=== PATIENT | female | born 2000 | race Two or more races ===

== ENCOUNTER 2022-07-01 16:19 | Outpatient (CLI) | payer OTHER ==
[~2022-07-01] VITALS: Ht 157.5 cm; Wt 79.6 kg
[2022-07-01 17:20] VITALS: BP 116/55
[2022-07-01 17:24] LABS: BASO % 0.2 % (0.0-1.0); EOS # 0.1 10^3/uL (0.0-0.5); EOS % 0.5 % (0.0-3.0); LYMPH # 1.7 10^3/uL (1.5-5.0); LYMPH % 12.4 % (24.0-44.0); MEAN CORPUSCULAR HEMOGLOBIN 30.2 pg (27.0-33.0); MEAN CORPUSCULAR HGB CONC 33.3 g/dl (32.0-36.5); MEAN CORPUSCULAR VOLUME 90.5 fl (80.0-96.0); MONO # 0.8 10^3/uL (0.0-0.8); MONO % 5.6 % (2.0-8.0); NEUTROPHILS # 10.7 10^3/uL (1.5-8.5); NEUTROPHILS % 80.6 % (36.0-66.0); PLATELET COUNT, AUTOMATED 254 10^3/uL (150-450); RED BLOOD COUNT 3.98 10^6/uL (4.00-5.40); WHITE BLOOD COUNT 13.3 10^3/uL (4.0-10.0)
[2022-07-01] MEDS ORDERED: PREN1TAB18 PO (17:46)
[2022-07-01] MEDS ORDERED: PYRI25TA2 PO (17:51)
[2022-07-01] MEDS ORDERED: UNIS25TA5 PO (17:51)
[2022-07-01] MEDS ORDERED: CVS325CA PO (17:51)
[2022-07-01] MEDS ORDERED: TUMS500C PO (17:51)
[2022-07-01] MEDS ORDERED: HOME MED LIST COMPLETE! XX SCH (17:55)
[2022-07-01] MEDS ORDERED: BETAMETHASONE SOLUSPAN 6MG/ML 5ML VIAL (J0702 PER 3MG) IM SCH (18:00)
[2022-07-01 18:35] VITALS: BP 147/87
[2022-07-01 18:36] VITALS: BP 139/70
[2022-07-01 18:50] LABS: GC DNA AMPLIFICATION NEGATIVE (NEGATIVE)
== END 2022-07-01 18:33 | disposition home or self-care (01) ==
LOC: M LDO 16:19
PROVIDERS: ATTEND Advanced Practice Midwife
DX: O26.872 Cervical shortening, second trimester (principal); Z3A.24 24 weeks gestation of pregnancy
CPT/HCPCS: 59025; 76815; 76817; 85025; 87081; 87661; 87810; 87850; 96372; G0378; G0463; J0702

== ENCOUNTER → 2022-07-02 | Outpatient (CLI) | payer OTHER ==
[~2022-07-02] VITALS: Ht 157.5 cm; Wt 83.3 kg
[~2022-07-02] MED LIST: BETAMETHASONE SOLUSPAN 6MG/ML 5ML VIAL (J0702 PER 3MG) IM ONE; CVS325CA PO; PREN1TAB18 PO; PYRI25TA2 PO; TUMS500C PO; UNIS25TA5 PO
[2022-07-02 18:20] VITALS: BP 128/74
[2022-07-02 18:48] VITALS: BP 134/63
== END ==
LOC: M LDO 17:59
PROVIDERS: ATTEND Registered Nurse
DX: O26.872 Cervical shortening, second trimester (principal); Z3A.24 24 weeks gestation of pregnancy
CPT/HCPCS: 59025; 96372; G0463; J0702

== ENCOUNTER 2022-07-07 09:14 | Observation (INO) | payer OTHER ==
[~2022-07-07] VITALS: Ht 157.5 cm; Wt 83.8 kg
[2022-07-07] VITALS (7 sets, daily range): BP systolic 107–134; BP diastolic 59–78
[~2022-07-07 09:14] MED LIST changes: -BETAMETHASONE SOLUSPAN 6MG/ML 5ML VIAL (J0702 PER 3MG) IM ONE
[2022-07-07] MEDS ORDERED: LR 1,000 ML IV SCH (11:00)
[2022-07-07] MEDS ORDERED: MAG Sulf (L&D) 4 GM/100 ML 4 GM in IV 1 EA IV ONE (11:00)
[2022-07-07] MEDS ORDERED: MAG Sulf (OBGYN) 20GM/500ML 20,000 MG in IV 1 EA IV SCH (11:20)
== END 2022-07-07 12:50 | disposition short-term general hospital (02) ==
LOC: M LDO 09:14 → M LDI 09:15 → M LDO 12:50
PROVIDERS: ADMIT Obstetrics & Gynecology; ATTEND Obstetrics & Gynecology
DX: O34.32 Maternal care for cervical incompetence, second trimester (principal); O26.872 Cervical shortening, second trimester; Z3A.25 25 weeks gestation of pregnancy; Z62.810 Personal history of physical and sexual abuse in childhood
CPT/HCPCS: 59025; 76815; 87635; J3475

== ENCOUNTER → 2022-08-26 | Outpatient (CLI) | payer OTHER | LOC: M WHC 06:55 | PROVIDERS: ATTEND Advanced Practice Midwife | DX: Z34.93 Encounter for supervision of normal pregnancy, unspecified, third trimester (principal); Z3A.32 32 weeks gestation of pregnancy ==

== ENCOUNTER 2022-09-29 16:19 | Inpatient (IN) | payer OTHER ==
[~2022-09-29] VITALS: Ht 157.5 cm; Wt 97.9 kg
[2022-09-29 16:36] VITALS: BP 138/91
[2022-09-29] MEDS ORDERED: ZOLO50TA PO (16:38)
[2022-09-29] MEDS ORDERED: LACTATED RINGER'S 1000 ML IV STA (16:39)
[2022-09-29] MEDS ORDERED: CARBOPROST TROMETHAMINE 250 MCG/ML AMP IM PRN (16:40)
[2022-09-29] MEDS ORDERED: OXYTOCIN INJ 10UNITS/ML 1ML VIAL IM PRN (16:40)
[2022-09-29] MEDS ORDERED: OXYTOCIN DRIP 30 UNITS in IV 1 EA IV PRN ×6 (16:40)
[2022-09-29] MEDS ORDERED: LIDOCAINE 1% MDV 20ML VIAL INFIL PRN (16:40)
[2022-09-29] MEDS ORDERED: TRANEXAMIC ACID INJection 1,000 MG in NS 100 ML IV PRN (16:40)
[2022-09-29] MEDS ORDERED: OXYTOCIN INJ 10UNITS/ML 1ML VIAL IV PRN (16:40)
[2022-09-29] MEDS ORDERED: HOME MED LIST COMPLETE! XX SCH (17:10)
[2022-09-29 17:38] LABS: HEMATOCRIT 35.9 % (36.0-47.0); HEMOGLOBIN 11.7 g/dl (12.0-15.5); MEAN CORPUSCULAR HEMOGLOBIN 29.2 pg (27.0-33.0); MEAN CORPUSCULAR HGB CONC 32.6 g/dl (32.0-36.5); MEAN CORPUSCULAR VOLUME 89.5 fl (80.0-96.0); PLATELET COUNT, AUTOMATED 236 10^3/uL (150-450); RED BLOOD COUNT 4.01 10^6/uL (4.00-5.40); WHITE BLOOD COUNT 9.8 10^3/uL (4.0-10.0)
[2022-09-29 18:02] LABS: LDH LACTATE DEHYDROGENASE 260 U/L (120-246)
[2022-09-29 18:03] LABS: ALT/SGPT 13 U/L (7.0-40); AST/SGOT 24 U/L (<34); BILIRUBIN,TOTAL 0.2 MG/DL (0.3-1.2); CREATININE FOR GFR 0.52 MG/DL (0.55-1.30)
[2022-09-29 18:27] LABS: URIC ACID 4.6 MG/DL (3.1-7.8)
[2022-09-29 18:37] VITALS: BP 131/74
[2022-09-29 19:02] LABS: TOTAL PROTEIN,RANDOM URINE 22.3 MG/DL (0.0-14.0)
[2022-09-29 19:06] LABS: CREATININE,RANDOM URINE 115.1 MG/DL
[2022-09-29] MEDS: miSOPROStol 50MCG 1/2 TABLET PO SCH ×2 (19:19→23:24)
[2022-09-29 19:21] VITALS: BP 129/88
[2022-09-29 23:25] VITALS: BP 125/59
[2022-09-30] VITALS (34 sets, daily range): BP systolic 116–160; BP diastolic 55–107
[2022-09-30] MEDS: miSOPROStol 50MCG 1/2 TABLET PO SCH ×6 (01:00→21:00)
[2022-09-30] MEDS ORDERED: OXYTOCIN DRIP 30 UNITS in IV 1 EA IV SCH (06:50)
[2022-09-30] MEDS: LR 1,000 ML IV SCH ×3 (08:27→22:50)
[2022-09-30] MEDS ORDERED: EPIDURAL/PCA KEYS XX PRN (11:55)
[2022-09-30] MEDS ORDERED: NALOXONE INJ 0.4MG/1ML VIAL IV PRN (11:55)
[2022-09-30] MEDS ORDERED: ONDANSETRON 4MG 2ML VIAL IV PRN (11:55)
[2022-09-30] MEDS ORDERED: LR 500 ML IV PRN (11:55)
[2022-09-30] MEDS ORDERED: diphenhydrAMINE 50MG/ML VIAL IV PRN (11:55)
[2022-09-30] MEDS ORDERED: ePHEDrine SULFATE 25 MG/5 ML(5MG/ML) SYRINGE IVP PRN (11:55)
[2022-09-30] MEDS ORDERED: FENTANYL 2MCG/ML ROPIVACAINE 0.2% IN 0.9% NACL 100ML IVBAG As Ordered ONE (11:56)
[2022-09-30] MEDS: FENTANYL/ROPIVACAINE/NACL BAG 100 ML EPIDURAL SCH ×2 (12:42→19:36)
[2022-09-30] MEDS ORDERED: ceFAZolin SOD 2 GM in IV 1 EA IV ONE (21:05)
[2022-09-30] MEDS ORDERED: ANUSOL HC CREAM 30GM TOP PRN (21:25)
[2022-09-30] MEDS ORDERED: DIBUCAINE 1% OINTMENT 30GM TOP PRN (21:25)
[2022-09-30] MEDS ORDERED: oxyCODONE 5MG TAB PO PRN (21:25)
[2022-09-30] MEDS ORDERED: RHOGAM 300MCG (1500IU) INJ IM SCH (21:25)
[2022-09-30] MEDS ORDERED: MOM 30ML SUSPENSION UDC PO PRN (21:25)
[2022-09-30] MEDS: IBUPROFEN 800 MG TAB PO PRN (22:11)
[2022-09-30] MEDS: ACETAMINOPHEN 500 MG TAB PO PRN (22:12)
[2022-10-01] VITALS: BP 117/59
[2022-10-01] MEDS: miSOPROStol 50MCG 1/2 TABLET PO SCH ×2 (01:00→05:00)
[2022-10-01] MEDS: IBUPROFEN 800 MG TAB PO PRN ×2 (04:22→15:16)
[2022-10-01 05:36] VITALS: BP 118/64
[2022-10-01] MEDS: FENTANYL/ROPIVACAINE/NACL BAG 100 ML EPIDURAL SCH ×2 (07:55→12:17)
[2022-10-01] MEDS: DOCUSATE SODIUM 100MG CAPSULE PO SCH ×2 (08:29→19:54)
[2022-10-01] MEDS: PERCOCET 5MG/325MG TAB PO PRN ×2 (08:30→15:15)
[2022-10-01 08:40] VITALS: BP 133/75
[2022-10-01 12:48] LABS: BASO % 0.2 % (0.0-1.0); EOS # 0.1 10^3/uL (0.0-0.5); EOS % 1.1 % (0.0-3.0); HEMATOCRIT 28.9 % (36.0-47.0); LYMPH # 1.7 10^3/uL (1.5-5.0); LYMPH % 16.8 % (24.0-44.0); MEAN CORPUSCULAR HEMOGLOBIN 29.6 pg (27.0-33.0); MEAN CORPUSCULAR HGB CONC 32.5 g/dl (32.0-36.5); MEAN CORPUSCULAR VOLUME 90.9 fl (80.0-96.0); MONO # 0.7 10^3/uL (0.0-0.8); MONO % 6.6 % (2.0-8.0); NEUTROPHILS # 7.7 10^3/uL (1.5-8.5); NEUTROPHILS % 74.8 % (36.0-66.0); PLATELET COUNT, AUTOMATED 184 10^3/uL (150-450); RED BLOOD COUNT 3.18 10^6/uL (4.00-5.40); WHITE BLOOD COUNT 10.3 10^3/uL (4.0-10.0)
[2022-10-01 12:49] LABS: HEMOGLOBIN 9.4 g/dl (12.0-15.5)
[2022-10-01 13:17] LABS: ALBUMIN 1.8 G/DL (3.2-5.2); ALKALINE PHOSPHATASE 95 U/L (46-116); ALT/SGPT 14 U/L (7.0-40); AST/SGOT 27 U/L (<34); BILIRUBIN,TOTAL 0.2 MG/DL (0.3-1.2); BLOOD UREA NITROGEN 7 MG/DL (9-23); CALCIUM LEVEL 8.3 MG/DL (8.5-10.1); CARBON DIOXIDE LEVEL 26 MMOL/L (20-31); CHLORIDE LEVEL 106 MMOL/L (98-107); CREATININE FOR GFR 0.61 MG/DL (0.55-1.30); GLUCOSE, FASTING 93 MG/DL (60-100); SODIUM LEVEL 140 MMOL/L (136-145); TOTAL PROTEIN 4.8 G/DL (5.7-8.2)
[2022-10-01 18:00] VITALS: BP 115/67
[2022-10-02] MEDS: IBUPROFEN 800 MG TAB PO PRN ×2 (01:48→22:45)
[2022-10-02] MEDS: FENTANYL/ROPIVACAINE/NACL BAG 100 ML EPIDURAL SCH (03:38)
[2022-10-02 06:00] VITALS: BP 122/62
[2022-10-02] MEDS: DOCUSATE SODIUM 100MG CAPSULE PO SCH ×2 (08:15→22:41)
[2022-10-02] MEDS: SERTRALINE HCL 50 MG TAB PO SCH (08:15)
[2022-10-02] MEDS: PERCOCET 5MG/325MG TAB PO PRN (08:17)
[2022-10-02] MEDS ORDERED: MEASLES,MUMPS,RUBELLA VACCINE INJ (MMR-II) SC.IMMUN ONE (09:00)
[2022-10-02] MEDS: ACETAMINOPHEN 500 MG TAB PO PRN (14:10)
[2022-10-02 18:00] VITALS: BP 135/71
[2022-10-03 06:04] VITALS: BP 124/66
[2022-10-03] MEDS: DOCUSATE SODIUM 100MG CAPSULE PO SCH (09:08)
[2022-10-03] MEDS: SERTRALINE HCL 50 MG TAB PO SCH (09:08)
== END 2022-10-03 13:15 | disposition home or self-care (01) | DRG 768 ==
LOC: M LDI 16:19 → M OBS 10-01
PROVIDERS: ADMIT Obstetrics & Gynecology; ATTEND Obstetrics & Gynecology
PROC: 3E0P7GC Introduction of Other Therapeutic Substance into Female Reproductive, Via Natural or Artificial Opening (ICD-10-PCS; 2022-09-29)
PROC: 0DQR0ZZ Repair Anal Sphincter, Open Approach (ICD-10-PCS; principal; 2022-09-30)
PROC: 10E0XZZ Delivery of Products of Conception, External Approach (ICD-10-PCS; 2022-09-30)
PROC: 10907ZC Drainage of Amniotic Fluid, Therapeutic from Products of Conception, Via Natural or Artificial Opening (ICD-10-PCS; 2022-09-30)
PROC: 3E0R3GC Introduction of Other Therapeutic Substance into Spinal Canal, Percutaneous Approach (ICD-10-PCS; 2022-10-02)
DX: O13.4 Gestational [pregnancy-induced] hypertension without significant proteinuria, complicating childbirth (principal); Z37.0 Single live birth; Z3A.37 37 weeks gestation of pregnancy; O70.23 Third degree perineal laceration during delivery, IIIc; O89.4 Spinal and epidural anesthesia-induced headache during the puerperium

== ENCOUNTER 2022-10-12 22:43 | Emergency (ER) | payer OTHER ==
[~2022-10-12] VITALS: Ht 157.5 cm; Wt 95.4 kg
[~2022-10-12 22:43] MED LIST changes: +ZOLO50TA PO
[2022-10-12 23:35] LABS: BASO % 0.2 % (0.0-1.0); EOS # 0.2 10^3/uL (0.0-0.5); HEMATOCRIT 39.4 % (36.0-47.0); HEMOGLOBIN 12.5 g/dl (12.0-15.5); LYMPH # 1.5 10^3/uL (1.5-5.0); LYMPH % 14.8 % (24.0-44.0); MEAN CORPUSCULAR HEMOGLOBIN 28.9 pg (27.0-33.0); MEAN CORPUSCULAR HGB CONC 31.7 g/dl (32.0-36.5); MONO # 0.5 10^3/uL (0.0-0.8); MONO % 4.6 % (2.0-8.0); NEUTROPHILS # 7.6 10^3/uL (1.5-8.5); NEUTROPHILS % 77.9 % (36.0-66.0); PLATELET COUNT, AUTOMATED 345 10^3/uL (150-450); RED BLOOD COUNT 4.33 10^6/uL (4.00-5.40); WHITE BLOOD COUNT 9.8 10^3/uL (4.0-10.0)
[2022-10-13 00:01] LABS: BLOOD UREA NITROGEN 12 MG/DL (9-23); CALCIUM LEVEL 8.2 MG/DL (8.5-10.1); CARBON DIOXIDE LEVEL 27 MMOL/L (20-31); CHLORIDE LEVEL 110 MMOL/L (98-107); CREATININE FOR GFR 0.59 MG/DL (0.55-1.30); GLUCOSE, FASTING 105 MG/DL (60-100); POTASSIUM SERUM 4.4 MMOL/L (3.5-5.1); SODIUM LEVEL 141 MMOL/L (136-145)
[2022-10-13 00:16] LABS: RSV AMPLIFICATION NEGATIVE (NEGATIVE)
[2022-10-13] MEDS ORDERED: KETOROLAC 30 MG/ML 1ML VIAL IV ONE (00:20)
[2022-10-13] MEDS ORDERED: NS 1,000 ML IV ONE (00:20)
[2022-10-13] MEDS ORDERED: ISOVUE-370 76% 100ML VIAL As Ordered ONE (00:24)
[2022-10-13 02:40] LABS: APPEARANCE, URINE CLEAR (CLEAR); BILIRUBIN, URINE AUTO NEGATIVE (NEGATIVE); BLOOD, URINE BLOOD 3+ (NEGATIVE); COLOR, URINE YELLOW (YELLOW); GLUCOSE, URINE (UA) AUTO NEGATIVE (NEGATIVE); KETONE, URINE AUTO NEGATIVE (NEGATIVE); LEUKOCYTE ESTERASE, URINE AUTO 3+ (NEGATIVE); NITRITE, URINE AUTO NEGATIVE (NEGATIVE); PROTEIN, URINE AUTO NEGATIVE (NEGATIVE); SPECIFIC GRAVITY URINE AUTO 1.044 (1.002-1.035); UROBILINOGEN, URINE AUTO 0.2 mg/dL (0.0-2.0)
[2022-10-13 02:44] LABS: BACTERIA, URINE AUTO NEGATIVE (NEGATIVE); MUCUS, URINE SMALL (NEGATIVE); RBC, URINE AUTO 3 /HPF (0-3); SQUAMOUS EPITHELIAL CELL UR AU 0 /HPF (0-6); WBC, URINE AUTO 24 /HPF (0-3)
[2022-10-13] MEDS ORDERED: CEFP200T PO ×2 (02:52→03:01)
[2022-10-13] MEDS ORDERED: CEFDINIR 300 MG CAP (OMNICEF) PO ONE (02:55)
[2022-10-13 03:13] VITALS: BP 118/64
== END 2022-10-13 03:15 | disposition home or self-care (01) ==
LOC: M ED 22:43
DX: N39.0 Urinary tract infection, site not specified (principal); K52.9 Noninfective gastroenteritis and colitis, unspecified
CPT/HCPCS: 74177; 76856; 80048; 81001; 84702; 85025; 86850; 86900; 86901; 87210; 87631; 93976; 96361; 96374; 99284; J1885

== ENCOUNTER 2022-12-24 09:02 | Emergency (ER) | payer OTHER ==
[~2022-12-24] VITALS: Ht 157.5 cm; Wt 95.5 kg
[~2022-12-24 09:02] MED LIST changes: +CEFP200T PO
[2022-12-24 11:18] LABS: BASO % 0.1 % (0.0-1.0); EOS # 0.1 10^3/uL (0.0-0.5); EOS % 0.4 % (0.0-3.0); HEMATOCRIT 44.5 % (36.0-47.0); HEMOGLOBIN 14.2 g/dl (12.0-15.5); LYMPH # 1.4 10^3/uL (1.5-5.0); LYMPH % 9.1 % (24.0-44.0); MEAN CORPUSCULAR HEMOGLOBIN 28.3 pg (27.0-33.0); MEAN CORPUSCULAR HGB CONC 31.9 g/dl (32.0-36.5); MEAN CORPUSCULAR VOLUME 88.6 fl (80.0-96.0); MONO # 0.7 10^3/uL (0.0-0.8); MONO % 4.6 % (2.0-8.0); NEUTROPHILS # 13.5 10^3/uL (1.5-8.5); NEUTROPHILS % 85.5 % (36.0-66.0); PLATELET COUNT, AUTOMATED 326 10^3/uL (150-450); RED BLOOD COUNT 5.02 10^6/uL (4.00-5.40); WHITE BLOOD COUNT 15.8 10^3/uL (4.0-10.0)
[2022-12-24] MEDS ORDERED: KETOROLAC 30 MG/ML 1ML VIAL IV ONE (11:25)
[2022-12-24] MEDS ORDERED: NS 1,000 ML IV ONE (11:25)
[2022-12-24 11:45] LABS: LIPASE 41 U/L (12-53)
[2022-12-24 11:47] LABS: ALBUMIN 3.7 G/DL (3.2-5.2); ALKALINE PHOSPHATASE 125 U/L (46-116); ALT/SGPT 45 U/L (7.0-40); AST/SGOT 34 U/L (<34); BILIRUBIN,DIRECT 0.1 MG/DL (<0.4); BILIRUBIN,TOTAL 0.4 MG/DL (0.3-1.2); BLOOD UREA NITROGEN 14 MG/DL (9-23); CALCIUM LEVEL 8.8 MG/DL (8.5-10.1); CARBON DIOXIDE LEVEL 28 MMOL/L (20-31); CHLORIDE LEVEL 108 MMOL/L (98-107); CREATININE FOR GFR 0.69 MG/DL (0.55-1.30); GLUCOSE, FASTING 95 MG/DL (60-100); POTASSIUM SERUM 4.2 MMOL/L (3.5-5.1); SODIUM LEVEL 143 MMOL/L (136-145); TOTAL PROTEIN 6.6 G/DL (5.7-8.2)
[2022-12-24 12:27] LABS: HCG, SERUM QUALITATIVE NEGATIVE (NEGATIVE)
[2022-12-24] MEDS ORDERED: ISOVUE-370 76% 100ML VIAL As Ordered ONE (12:38)
[2022-12-24] MEDS ORDERED: AMOX875T2 PO ×2 (14:30→14:44)
[2022-12-24] MEDS ORDERED: ONDA4TAB6 PO ×2 (14:33→14:44)
[2022-12-24 14:51] VITALS: BP 132/79
== END 2022-12-24 14:59 | disposition home or self-care (01) ==
LOC: EDBD 09:02 → M ED 09:02
DX: N39.0 Urinary tract infection, site not specified (principal); N93.9 Abnormal uterine and vaginal bleeding, unspecified; I10 Essential (primary) hypertension; F41.9 Anxiety disorder, unspecified
CPT/HCPCS: 74177; 76856; 80048; 80076; 81001; 83605; 83690; 84703; 85025; 87040; 87086; 93976; 96374; 99284; J1885; Q9967

== ENCOUNTER 2023-04-04 21:44 | Emergency (ER) | payer OTHER ==
[~2023-04-04] VITALS: Ht 157.5 cm; Wt 95.5 kg
[~2023-04-04 21:44] MED LIST changes: +AMOX875T2 PO; +ONDA4TAB6 PO
[2023-04-04 21:58] VITALS: BP 138/72; TEMP 97.2; O2SAT 97
[2023-04-04 22:34] LABS: BASO % 0.2 % (0.0-1.0); EOS # 0.1 10^3/uL (0.0-0.5); EOS % 0.8 % (0.0-3.0); HEMATOCRIT 41.5 % (36.0-47.0); HEMOGLOBIN 13.2 g/dl (12.0-15.5); LYMPH # 1.7 10^3/uL (1.5-5.0); LYMPH % 13.6 % (24.0-44.0); MEAN CORPUSCULAR HEMOGLOBIN 27.3 pg (27.0-33.0); MEAN CORPUSCULAR HGB CONC 31.8 g/dl (32.0-36.5); MEAN CORPUSCULAR VOLUME 85.9 fl (80.0-96.0); MONO # 0.7 10^3/uL (0.0-0.8); NEUTROPHILS # 9.6 10^3/uL (1.5-8.5); NEUTROPHILS % 79.1 % (36.0-66.0); PLATELET COUNT, AUTOMATED 339 10^3/uL (150-450); RED BLOOD COUNT 4.83 10^6/uL (4.00-5.40); WHITE BLOOD COUNT 12.1 10^3/uL (4.0-10.0)
[2023-04-04 22:53] LABS: LIPASE 38 U/L (12-53)
[2023-04-04 22:55] LABS: ALBUMIN 3.5 G/DL (3.2-5.2); ALKALINE PHOSPHATASE 116 U/L (46-116); ALT/SGPT 50 U/L (7.0-40); AST/SGOT 25 U/L (<34); BILIRUBIN,DIRECT < 0.1 MG/DL (<0.4); BILIRUBIN,TOTAL 0.2 MG/DL (0.3-1.2); BLOOD UREA NITROGEN 10 MG/DL (9-23); CALCIUM LEVEL 9.3 MG/DL (8.5-10.1); CARBON DIOXIDE LEVEL 28 MMOL/L (20-31); CHLORIDE LEVEL 105 MMOL/L (98-107); CREATININE FOR GFR 0.72 MG/DL (0.55-1.30); GLUCOSE, FASTING 118 MG/DL (60-100); POTASSIUM SERUM 4.1 MMOL/L (3.5-5.1); SODIUM LEVEL 142 MMOL/L (136-145); TOTAL PROTEIN 6.6 G/DL (5.7-8.2)
[2023-04-04 22:56] LABS: AMORPHOUS SEDIMENT SMALL (NEGATIVE); APPEARANCE, URINE HAZY (CLEAR); BACTERIA, URINE AUTO NEGATIVE (NEGATIVE); BILIRUBIN, URINE AUTO NEGATIVE (NEGATIVE); BLOOD, URINE BLOOD NEGATIVE (NEGATIVE); COLOR, URINE YELLOW (YELLOW); GLUCOSE, URINE (UA) AUTO NEGATIVE (NEGATIVE); KETONE, URINE AUTO TRACE mg/dL (NEGATIVE); LEUKOCYTE ESTERASE, URINE AUTO TRACE (NEGATIVE); MUCUS, URINE SMALL (NEGATIVE); NITRITE, URINE AUTO NEGATIVE (NEGATIVE); PROTEIN, URINE AUTO NEGATIVE (NEGATIVE); RBC, URINE AUTO 2 /HPF (0-3); SPECIFIC GRAVITY URINE AUTO 1.023 (1.002-1.035); SQUAMOUS EPITHELIAL CELL UR AU 4 /HPF (0-6); WBC, URINE AUTO 1 /HPF (0-3)
[2023-04-04 23:51] LABS: HCG, SERUM QUALITATIVE NEGATIVE (NEGATIVE)
== END 2023-04-05 00:04 | disposition left against medical advice (07) ==
LOC: EDBD 21:44 → M ED 21:44
DX: R11.2 Nausea with vomiting, unspecified (principal); Z53.21 Procedure and treatment not carried out due to patient leaving prior to being seen by health care provider

== ENCOUNTER 2024-03-02 07:34 | Emergency (ER) | payer OTHER ==
[~2024-03-02] VITALS: Ht 157.5 cm; Wt 102.8 kg
[~2024-03-02 07:34] MED LIST changes: +ONDA-282 PO; -ONDA4TAB6 PO
[2024-03-02 07:36] VITALS: BP 142/94; TEMP 97.7; O2SAT 98
[2024-03-02 08:46] LABS: BLOOD UREA NITROGEN 11 MG/DL (9-23); CALCIUM LEVEL 8.6 MG/DL (8.5-10.1); CARBON DIOXIDE LEVEL 27 MMOL/L (20-31); CHLORIDE LEVEL 105 MMOL/L (98-107); CREATININE FOR GFR 0.78 MG/DL (0.55-1.30); GLOMERULAR FILTRATION RATE > 60.0 (>60); GLUCOSE, FASTING 104 MG/DL (60-100); LIPASE 36 U/L (12-53); POTASSIUM SERUM 4.9 MMOL/L (3.5-5.1); SODIUM LEVEL 137 MMOL/L (136-145)
[2024-03-02] MEDS: ONDANSETRON 4MG 2ML VIAL IV ONE (08:48)
[2024-03-02] MEDS: NS 1,000 ML IV ONE (08:48)
[2024-03-02 08:59] LABS: HEMATOCRIT 43.5 % (36.0-47.0); MEAN CORPUSCULAR HGB CONC 32.2 g/dl (32.0-36.5); PLATELET COUNT, AUTOMATED 194 10^3/uL (150-450); RED BLOOD COUNT 5.18 10^6/uL (4.00-5.40)
[2024-03-02] MEDS ORDERED: ONDA-282 PO (10:08)
[2024-03-02] MEDS ORDERED: MACR100C43 PO (12:30)
[2024-03-02] MEDS: NITROFURANTOIN (MACROBID) 100 MG CAP PO ONE (13:34)
== END 2024-03-02 13:40 | disposition home or self-care (01) ==
LOC: M ED 07:34
DX: N39.0 Urinary tract infection, site not specified (principal); R11.2 Nausea with vomiting, unspecified; R19.7 Diarrhea, unspecified; I10 Essential (primary) hypertension; Z79.1 Long term (current) use of non-steroidal anti-inflammatories (NSAID); Z79.2 Long term (current) use of antibiotics; Z79.899 Other long term (current) drug therapy
CPT/HCPCS: 80048; 81000; 81015; 83690; 84702; 85027; 87086; 96374; 99283; J2405